=== PATIENT | male | born 1935 | race Caucasian/White ===

== ENCOUNTER 2016-09-01 23:05 | Inpatient (IN) | payer MEDICARE ==
[~2016-09-01] VITALS: Ht 182.8 cm; Wt 71.7 kg
--- NOTE | ~2016-09-01 | PR ---
[place], [place] PROGRESS NOTE NAME: ALIYAH COLLIER [facility] #: [id number] UNIT #: [id number] ROOM: 404 DOCTOR: LYNN TA MD BIRTHDATE: [birth year] DOS: 09/05/2016 CARDIOLOGY PROGRESS NOTE SUBJECTIVE: The patient was seen at his bedside today 09/05/2016 for followup of his newly documented atrial fibrillation. He is an 81-year-old man with a history of cigarette and alcohol abuse as well as coronary artery disease who is status post stenting to his circumflex in 2006. He presented to the hospital now with 1 week of cough with dyspnea and collazo sputum production. He blames this on a flu shot that he had a little over a week ago. On admission, he was noted to be in atrial fibrillation. Review of old records indicates that he did have a brief episode of atrial fibrillation in 05/2008 as well. He was not placed on anticoagulants at that time because of continued active alcohol abuse. At this time, we are planning on anticoagulating him because he has been abstinent of alcohol for 8 years. The patient did appear to have an acute exacerbation of obstructive lung disease on admission. He is being treated with bronchodilators and antibiotics and does seem to be doing well. He was also placed on rivaroxaban today. PHYSICAL EXAMINATION: VITAL SIGNS: His pulse is 98 and irregularly irregular, blood pressure is 130/50. He is afebrile. He weighs 71.7 kilograms. NECK: Supple. He does have mild jugular distention. Carotids are full. LUNGS: Respirations are unlabored. He does have scattered wheezes in all lung fleming with expiratory prolongation bilaterally. I heard no rales. He had no presacral edema. HEART: Had an irregularly irregular and fairly rapid rhythm. There were no murmurs or gallops. ABDOMEN: Benign. EXTREMITIES: Showed no edema. I reviewed his echocardiogram which was done on 09/04/2016. It showed normal left ventricular size with mild concentric left ventricular hypertrophy, left ventricular systolic function was normal with an ejection fraction of 55%. Diastole could not be fully assessed. The left atrium was mildly dilated. The right atrium appeared normal. No significant valve abnormalities were seen. IMPRESSION: 1. Acute exacerbation of chronic obstructive lung disease. 2. Recurrent paroxysmal atrial fibrillation. 3. Essential hypertension. 4. History of alcohol abuse, abstinent for 8 years. 5. History of cigarette abuse, abstinent since 1966. PLAN: We will continue efforts to control his heart rate. I will switch him from IV to p.o. diltiazem. For now, I would avoid high dose beta blockers because of his active wheezing, I certainly agree with anticoagulating him with rivaroxaban. [place], [place] PROGRESS NOTE NAME: ALIYAH COLLIER UNIT #: [id number] ROOM: 404 DOCTOR: LYNN TA MD BIRTHDATE: [birth year] We thank the hospitalist physicians for asking our advice regarding his care. LYNN TA MD CM:PNTRANS [id number] LYNN TA MD 09/06/16 0503 interface
[2016-09-01 23:13] VITALS: BP 169/53
[2016-09-01] MEDS ORDERED: COZAAR100 MG PO (23:18)
[2016-09-01] MEDS ORDERED: [UNRECOGNIZED DRUG - OTHER] PO (23:19)
[2016-09-01] MEDS ORDERED: LIPITOR10 MG PO (23:19)
[2016-09-01] MEDS ORDERED: LIPITOR20 MG PO (23:19)
[2016-09-01] MEDS ORDERED: OMEPRAZOLE20 M2 PO (23:20)
[2016-09-01] MEDS ORDERED: LOW DOSE ASPIRI81 MG PO (23:20)
[2016-09-01] MEDS ORDERED: CENTRUM SILVER1 EAC4 PO (23:21)
[2016-09-02 00:30] LABS: BASO % 0.2 % (0.0-1.0); HEMATOCRIT 36.8 % (42.0-52.0); HEMOGLOBIN 12.1 g/dl (14.0-18.0); LYMPH # 1.6 10*3/uL (1.3-4.4); LYMPH % 12.9 % (27.0-41.0); MEAN CELL VOLUME 84.6 fl (80.0-94.0); MEAN CORPUSCULAR HGB 27.8 pg (27.0-31.0); MEAN CORPUSCULAR HGB CONC 32.9 g/dl (33.0-37.0); MEAN PLATELET VOLUME 9.1 fl (9.6-12.3); MONO # 0.9 10*3/uL (0.1-1.0); MONO % 7.2 % (3.0-9.0); NEUT # 9.8 10*3/uL (2.3-7.9); NEUT % 79.4 % (47.0-73.0); PLATELET COUNT AUTOMATED 236 10*3/uL (130-400); RED BLOOD COUNT 4.35 10*6/uL (4.50-5.90); RED CELL DISTRI WIDTH 13.2 % (0-14.5); WHITE BLOOD COUNT 12.3 10*3/uL (4.8-10.8)
[2016-09-02 00:46] LABS: ALKALINE PHOSPHATASE 64 U/L (45-117); BILIRUBIN, DIRECT 0.2 mg/dL (0.0-0.2); BILIRUBIN, TOTAL 0.5 mg/dl (0.2-1.0); BUN 12 mg/dl (7-24); CARBON DIOXIDE 23 mmol/L (21-32); CHLORIDE 108 mmol/L (98-107); EST GLOM FILT AFRICAN AMERICAN > 60 ml/min; GLUCOSE 113 mg/dL (65-99); MAGNESIUM 1.4 mg/dL (1.5-2.1); SGOT/AST 27 IU/L (3-35); SGPT/ALT 31 U/L (12-78); SODIUM 141 mmol/L (136-145); TOTAL PROTEIN 7.1 gm/dL (6.4-8.2)
[2016-09-02 03:15] VITALS: BP 125/52
[2016-09-02 06:00] LABS: HEMATOCRIT 38.3 % (42.0-52.0); HEMOGLOBIN 12.3 g/dl (14.0-18.0); MEAN CELL VOLUME 86.8 fl (80.0-94.0); MEAN CORPUSCULAR HGB 27.9 pg (27.0-31.0); MEAN CORPUSCULAR HGB CONC 32.1 g/dl (33.0-37.0); MEAN PLATELET VOLUME 9.1 fl (9.6-12.3); PLATELET COUNT AUTOMATED 231 10*3/uL (130-400); RED BLOOD COUNT 4.41 10*6/uL (4.50-5.90); RED CELL DISTRI WIDTH 13.2 % (0-14.5); WHITE BLOOD COUNT 13.3 10*3/uL (4.8-10.8)
[2016-09-02 06:28] LABS: ALBUMIN 2.9 gm/dl (3.1-4.5); BILIRUBIN, TOTAL 0.5 mg/dl (0.2-1.0); FREE T4 1.48 ng/dl (0.76-1.46); INTERNATIONAL NORM RATIO 1.1 (2.0-3.5); POTASSIUM 3.2 mmol/L (3.5-5.1); PROTHROMBIN TIME 11.2 SECONDS (9.0-12.4); TOTAL PROTEIN 7.2 gm/dL (6.4-8.2)
[2016-09-02 06:32] LABS: THYROID STIM HORMONE (HS) 0.259 uIU/ml (0.358-4.75)
[2016-09-02 06:34] LABS: LYMPHOCYTE # 0.3 10*3/uL (1.3-4.4); NEUTROPHILS 98 % (47-73); PLATELET SUFFICIENCY NORMAL (NORMAL); TOTAL CELLS COUNTED 100 #CELLS
[2016-09-02 08:00] VITALS: BP 129/48
[2016-09-02 08:13] LABS: VITAMIN D, 25-HYDROXY 38.6 ng/mL (30-100)
[2016-09-02 08:14] LABS: FOLIC ACID 16.8 ng/mL (>5.38)
[2016-09-02 08:15] LABS: HEMOGLOBIN A1c 5.6 % (4.8-5.6)
[2016-09-02 12:00] VITALS: BP 141/47
[2016-09-02 16:00] VITALS: BP 131/52
[2016-09-02 20:00] VITALS: BP 141/69
[2016-09-02 20:02] VITALS: BP 140/86
[2016-09-03] VITALS: BP 128/55
[2016-09-03 06:46] LABS: HEMATOCRIT 33.4 % (42.0-52.0); HEMOGLOBIN 11.2 g/dl (14.0-18.0); MEAN CELL VOLUME 83.9 fl (80.0-94.0); MEAN CORPUSCULAR HGB 28.1 pg (27.0-31.0); MEAN CORPUSCULAR HGB CONC 33.5 g/dl (33.0-37.0); MEAN PLATELET VOLUME 9.1 fl (9.6-12.3); PLATELET COUNT AUTOMATED 262 10*3/uL (130-400); RED BLOOD COUNT 3.98 10*6/uL (4.50-5.90); RED CELL DISTRI WIDTH 13.3 % (0-14.5); WHITE BLOOD COUNT 15.6 10*3/uL (4.8-10.8)
[2016-09-03 07:11] LABS: BUN 17 mg/dl (7-24); CARBON DIOXIDE 22 mmol/L (21-32); CHLORIDE 112 mmol/L (98-107); EST GLOM FILT AFRICAN AMERICAN > 60 ml/min; GLUCOSE 116 mg/dL (65-99); POTASSIUM 3.7 mmol/L (3.5-5.1); SODIUM 143 mmol/L (136-145)
[2016-09-03 07:52] LABS: HYPOCHROMIA MODERATE; LYMPHOCYTE # 0.9 10*3/uL (1.3-4.4); NEUTROPHIL # 14.7 10*3/uL (2.3-7.9); NEUTROPHILS 94 % (47-73); PLATELET SUFFICIENCY NORMAL (NORMAL); TOTAL CELLS COUNTED 100 #CELLS
[2016-09-03 08:00] VITALS: BP 118/48
[2016-09-03 12:00] VITALS: BP 130/43
[2016-09-03 16:00] VITALS: BP 123/47
[2016-09-03 20:00] VITALS: BP 135/44
[2016-09-04] VITALS (7 sets, daily range): BP systolic 102–155; BP diastolic 52–84
[2016-09-04 09:22] LABS: PROTHROMBIN TIME 10.7 SECONDS (9.0-12.4)
[2016-09-05] VITALS: BP 142/78
[2016-09-05 06:25] LABS: ALBUMIN 2.6 gm/dl (3.1-4.5); ALKALINE PHOSPHATASE 47 U/L (45-117); BILIRUBIN, TOTAL 0.2 mg/dl (0.2-1.0); BUN 26 mg/dl (7-24); CARBON DIOXIDE 24 mmol/L (21-32); CHLORIDE 114 mmol/L (98-107); EST GLOM FILT AFRICAN AMERICAN > 60 ml/min; GLUCOSE 113 mg/dL (65-99); SGOT/AST 33 IU/L (3-35); SGPT/ALT 42 U/L (12-78); SODIUM 147 mmol/L (136-145); TOTAL PROTEIN 6.5 gm/dL (6.4-8.2)
[2016-09-05 06:38] LABS: BASO % 0.1 % (0.0-1.0); HEMOGLOBIN 11.8 g/dl (14.0-18.0); IG # 0.1 10*3/uL (0.0-0.1); LYMPH # 0.7 10*3/uL (1.3-4.4); LYMPH % 6.5 % (27.0-41.0); MEAN CELL VOLUME 86.7 fl (80.0-94.0); MEAN CORPUSCULAR HGB 27.6 pg (27.0-31.0); MEAN CORPUSCULAR HGB CONC 31.9 g/dl (33.0-37.0); MEAN PLATELET VOLUME 9.2 fl (9.6-12.3); MONO # 0.4 10*3/uL (0.1-1.0); MONO % 3.5 % (3.0-9.0); NEUT # 9.1 10*3/uL (2.3-7.9); NEUT % 88.5 % (47.0-73.0); RED BLOOD COUNT 4.27 10*6/uL (4.50-5.90); RED CELL DISTRI WIDTH 14.1 % (0-14.5); WHITE BLOOD COUNT 10.3 10*3/uL (4.8-10.8)
[2016-09-05 06:41] LABS: PLATELET COUNT AUTOMATED 400 10*3/uL (130-400)
[2016-09-05 08:00] VITALS: BP 102/80
[2016-09-05 10:06] VITALS: BP 110/58
[2016-09-05 12:00] VITALS: BP 125/50
[2016-09-05 16:00] VITALS: BP 131/51
[2016-09-05 20:00] VITALS: BP 141/64
[2016-09-06] VITALS: BP 127/48
[2016-09-06 07:29] LABS: BUN 22 mg/dl (7-24); CARBON DIOXIDE 27 mmol/L (21-32); CHLORIDE 111 mmol/L (98-107); EST GLOM FILT AFRICAN AMERICAN > 60 ml/min; GLUCOSE 122 mg/dL (65-99); POTASSIUM 4.3 mmol/L (3.5-5.1); SODIUM 145 mmol/L (136-145)
[2016-09-06 08:00] VITALS: BP 126/54
[2016-09-06] MEDS ORDERED: AVPAK AZITHROM250 M1 PO (10:58)
[2016-09-06] MEDS ORDERED: PREDNISONE10 MG PO (10:58)
[2016-09-06] MEDS ORDERED: DILTIAZEM240 M1 PO (10:58)
[2016-09-06] MEDS ORDERED: XARE20MG PO (10:58)
[2016-09-06 12:00] VITALS: BP 145/48
== END 2016-09-06 14:15 | disposition home or self-care (01) | DRG 871 ==
LOC: ED 23:05 → 4E 09-02 01:39 → EDHOLD 09-02 01:39 → 4E 09-02 01:58
PROVIDERS: Emergency Medicine; Internal Medicine; Internal Medicine Hospice and Palliative Medicine; Student in an Organized Health Care Education/Training Program
DX: A41.9 Sepsis, unspecified organism (principal); J18.9 Pneumonia, unspecified organism; N17.0 Acute kidney failure with tubular necrosis; E43 Unspecified severe protein-calorie malnutrition; E87.0 Hyperosmolality and hypernatremia; J44.1 Chronic obstructive pulmonary disease with (acute) exacerbation; D64.9 Anemia, unspecified; I48.0 Paroxysmal atrial fibrillation; I25.10 Atherosclerotic heart disease of native coronary artery without angina pectoris; E78.5 Hyperlipidemia, unspecified; I10 Essential (primary) hypertension; E87.6 Hypokalemia; R73.9 Hyperglycemia, unspecified; E83.42 Hypomagnesemia; E05.80 Other thyrotoxicosis without thyrotoxic crisis or storm; Z87.891 Personal history of nicotine dependence; Z68.21 Body mass index [BMI] 21.0-21.9, adult; Z95.5 Presence of coronary angioplasty implant and graft; Z88.8 Allergy status to other drugs, medicaments and biological substances; Z88.2 Allergy status to sulfonamides

== ENCOUNTER 2016-09-07 19:36 | Emergency (ER) | payer MEDICARE ==
[~2016-09-07] VITALS: Ht 182.8 cm; Wt 73.5 kg
[~2016-09-07 19:36] MED LIST: AVPAK AZITHROM250 M1 PO; CENTRUM SILVER1 EAC4 PO; COZAAR100 MG PO; DILTIAZEM240 M1 PO; LIPITOR10 MG PO; LIPITOR20 MG PO; LOW DOSE ASPIRI81 MG PO; OMEPRAZOLE20 M2 PO; PREDNISONE10 MG PO; XARE20MG PO; [UNRECOGNIZED DRUG - OTHER] PO
[2016-09-07 19:55] VITALS: BP 138/89
[2016-09-07 21:37] LABS: BILIRUBIN NEGATIVE (NEGATIVE); BLOOD TRACE-INTACT (NEGATIVE); CLARITY SL CLOUDY (CLEAR); COLOR YELLOW (YELLOW); GLUCOSE NEGATIVE (NEGATIVE); KETONE NEGATIVE (NEGATIVE); LEUKO ESTERASE NEGATIVE (NEGATIVE); NITRITE NEGATIVE (NEGATIVE); PROTEIN NEGATIVE (NEGATIVE); UROBILINOGEN 0.2 E.U./dl (0.2-1.0)
[2016-09-07 21:44] LABS: BACTERIA 1+; EPITHELIAL CELLS 0-2; RBC 0-2 rbc/hpf (0-2); URINE REFLEX COMMENT YES (NO)
== END 2016-09-08 00:18 | disposition home or self-care (01) ==
LOC: ED 19:36
PROVIDERS: Physician Assistant
DX: R33.9 Retention of urine, unspecified (principal); K59.00 Constipation, unspecified; Z88.2 Allergy status to sulfonamides; Z88.8 Allergy status to other drugs, medicaments and biological substances; Z79.899 Other long term (current) drug therapy; Z79.82 Long term (current) use of aspirin

== ENCOUNTER 2016-09-08 08:09 | Emergency (ER) | payer MEDICARE ==
[~2016-09-08] VITALS: Ht 177.8 cm; Wt 73.5 kg
[2016-09-08 08:20] VITALS: BP 135/53
== END 2016-09-08 10:05 | disposition home or self-care (01) ==
LOC: ED 08:09
DX: T83.9XXA Unspecified complication of genitourinary prosthetic device, implant and graft, initial encounter (principal); I25.10 Atherosclerotic heart disease of native coronary artery without angina pectoris; J44.9 Chronic obstructive pulmonary disease, unspecified; E78.5 Hyperlipidemia, unspecified; I10 Essential (primary) hypertension; I48.91 Unspecified atrial fibrillation; Z79.82 Long term (current) use of aspirin; Z79.899 Other long term (current) drug therapy; Z88.2 Allergy status to sulfonamides; Z88.8 Allergy status to other drugs, medicaments and biological substances

== ENCOUNTER 2016-10-12 11:33 | Emergency (ER) | payer MEDICARE ==
[~2016-10-12] VITALS: Wt 74.8 kg
[2016-10-12 12:38] LABS: BASO # 0.1 10*3/uL (0.0-0.1); BASO % 0.8 % (0.0-1.0); EOS % 0.5 % (1.0-4.0); HEMATOCRIT 32.2 % (42.0-52.0); HEMOGLOBIN 10.3 g/dl (14.0-18.0); IG # 0.1 10*3/uL (0.0-0.1); LYMPH # 1.9 10*3/uL (1.3-4.4); LYMPH % 28.9 % (27.0-41.0); MEAN CELL VOLUME 86.3 fl (80.0-94.0); MEAN CORPUSCULAR HGB 27.6 pg (27.0-31.0); MEAN PLATELET VOLUME 8.2 fl (9.6-12.3); MONO # 0.7 10*3/uL (0.1-1.0); MONO % 11.1 % (3.0-9.0); NEUT # 3.8 10*3/uL (2.3-7.9); NEUT % 57.9 % (47.0-73.0); PLATELET COUNT AUTOMATED 359 10*3/uL (130-400); RED BLOOD COUNT 3.73 10*6/uL (4.50-5.90); WHITE BLOOD COUNT 6.5 10*3/uL (4.8-10.8)
[2016-10-12 12:45] LABS: BUN 6 mg/dl (7-24); CARBON DIOXIDE 26 mmol/L (21-32); CHLORIDE 104 mmol/L (98-107); EST GLOM FILT AFRICAN AMERICAN > 60 ml/min; GLUCOSE 89 mg/dL (65-99); POTASSIUM 4.1 mmol/L (3.5-5.1); SODIUM 140 mmol/L (136-145)
[2016-10-12] MEDS ORDERED: TERAZOSIN5 MG PO (13:04)
[2016-10-12] MEDS ORDERED: OMEPRAZOLE20 M2 PO (13:04)
[2016-10-12] MEDS ORDERED: COZAAR100 MG PO (13:05)
[2016-10-12] MEDS ORDERED: XARE20MG PO (13:05)
[2016-10-12] MEDS ORDERED: LIPITOR10 MG PO (13:05)
[2016-10-12] MEDS ORDERED: PROVENTIL0.09 MG/A1 INH (13:06)
[2016-10-12] MEDS ORDERED: SPIRIVA RESPIMAT4 GM INH (13:06)
[2016-10-12 14:23] VITALS: BP 126/51
[2016-10-12] MEDS ORDERED: DOXYCYCLINE100 MG PO (14:27)
== END 2016-10-12 14:31 | disposition home or self-care (01) ==
LOC: ED 11:33
PROVIDERS: Emergency Medicine
DX: J44.1 Chronic obstructive pulmonary disease with (acute) exacerbation (principal); I10 Essential (primary) hypertension; I25.10 Atherosclerotic heart disease of native coronary artery without angina pectoris; E78.5 Hyperlipidemia, unspecified; I48.91 Unspecified atrial fibrillation; Z88.2 Allergy status to sulfonamides; Z88.6 Allergy status to analgesic agent; Z95.5 Presence of coronary angioplasty implant and graft

== ENCOUNTER 2017-05-07 11:17 | Emergency (ER) | payer OTHER, MEDICARE ==
[~2017-05-07] VITALS: Ht 182.8 cm; Wt 83.9 kg
[~2017-05-07 11:17] MED LIST changes: +DOXYCYCLINE100 MG PO; +PROVENTIL0.09 MG/A1 INH; +SPIRIVA RESPIMAT4 GM INH; +TERAZOSIN5 MG PO
[2017-05-07 12:32] LABS: BASO # 0.1 10*3/uL (0.0-0.1); BASO % 0.4 % (0.0-1.0); EOS # 0.2 10*3/uL (0.0-0.4); EOS % 1.3 % (1.0-4.0); HEMATOCRIT 35.8 % (42.0-52.0); HEMOGLOBIN 11.5 g/dl (14.0-18.0); LYMPH # 2.7 10*3/uL (1.3-4.4); LYMPH % 19.1 % (27.0-41.0); MEAN CELL VOLUME 84.6 fl (80.0-94.0); MEAN CORPUSCULAR HGB 27.2 pg (27.0-31.0); MEAN CORPUSCULAR HGB CONC 32.1 g/dl (33.0-37.0); MEAN PLATELET VOLUME 8.6 fl (9.6-12.3); MONO % 7.3 % (3.0-9.0); PLATELET COUNT AUTOMATED 282 10*3/uL (130-400); RED BLOOD COUNT 4.23 10*6/uL (4.50-5.90); RED CELL DISTRI WIDTH 13.8 % (0-14.5); WHITE BLOOD COUNT 14.1 10*3/uL (4.8-10.8)
[2017-05-07 12:48] LABS: ALBUMIN 2.7 gm/dl (3.1-4.5); ALKALINE PHOSPHATASE 80 U/L (45-117); BUN 16 mg/dl (7-24); CHLORIDE 107 mmol/L (98-107); CREATININE 1.33 mg/dL (0.70-1.30); POTASSIUM 3.8 mmol/L (3.5-5.1); SGOT/AST 13 IU/L (3-35); SGPT/ALT 21 U/L (12-78); SODIUM 141 mmol/L (136-145); TOTAL PROTEIN 7.3 gm/dL (6.4-8.2)
[2017-05-07] MEDS ORDERED: AUGMENTIN 875875 MG PO (16:17)
[2017-05-07 16:29] VITALS: BP 155/50
== END 2017-05-07 16:54 | disposition home or self-care (01) ==
LOC: ED 11:17
PROVIDERS: Nurse Practitioner Family
DX: J18.9 Pneumonia, unspecified organism (principal); L97.328 Non-pressure chronic ulcer of left ankle with other specified severity; Z88.1 Allergy status to other antibiotic agents; Z88.8 Allergy status to other drugs, medicaments and biological substances